=== PATIENT | female | born 1950 | race Caucasian/White ===

== ENCOUNTER → 2016-10-29 | Outpatient (CLI) | payer MEDICARE | END | disposition home or self-care (01) | LOC: CFH 07:55 | PROVIDERS: ATTEND Family Medicine | DX: Z12.31 Encounter for screening mammogram for malignant neoplasm of breast (principal) | CPT/HCPCS: G0202 ==

== ENCOUNTER 2019-01-13 13:09 | Emergency (ER) | payer MEDICARE ==
[~2019-01-13] VITALS: Ht 162.6 cm; Wt 67.5 kg
[2019-01-13 13:18] VITALS: BP 131/85
[2019-01-13] MEDS ORDERED: DIPH,PERTUSS(ACELL),TET VAC/PF 0.5 ML IM-VACC ONE ×2 (13:35→14:00)
[2019-01-13] MEDS ORDERED: LIDOCAINE-MPF 1%, 5ML ONE (13:35)
--- NOTE | 2019-01-13 13:38 | NUR ---
PA AT BEDSIDE FOR LIDO ADMIN.
--- NOTE | 2019-01-13 13:38 | NUR ---
PT HERE WITH C/O RIGHT THURD FINGER LAC, + AVULSION, BLEEDING CONTROLLED. PT AAO X 4, NAD, ROOM AIR, PA AT BEDSIDE FOR EXAM, CALL LIGHT WITHIN REACH.
--- NOTE | 2019-01-13 13:46 | NUR ---
REPORT GIVEN TO DALTON MILLER. CARE TRANSFERRED.
[2019-01-13] MEDS ORDERED: NEOSPORIN OINT. PKT 1 PACKET ONE (13:50)
[2019-01-13] MEDS ORDERED: LIDOCAINE-MPF 1%, 5ML INFIL ONE (14:00)
--- NOTE | 2019-01-13 14:05 | NUR ---
MEDICATED PER EMR (TDAP UPDATED PATIENT UNSURE OF LAST TIME IMMUNIZED FOR TETANUS) EMT AT BEDSIDE-WOUND IRRIGATED WITHOUT DIFFICULTY
== END 2019-01-13 14:54 | disposition home or self-care (01) ==
LOC: ED 14:50
DX: S61.212A Laceration without foreign body of right middle finger without damage to nail, initial encounter (principal); W23.0XXA Caught, crushed, jammed, or pinched between moving objects, initial encounter; Y93.89 Activity, other specified; Y92.009 Unspecified place in unspecified non-institutional (private) residence as the place of occurrence of the external cause; Y99.8 Other external cause status
CPT/HCPCS: 12042; 90471; 90715; 99284

== ENCOUNTER 2019-09-13 16:54 | Emergency (ER) | payer MEDICARE ==
[~2019-09-13] VITALS: Ht 162.6 cm; Wt 68.9 kg
[2019-09-13 17:43] LABS: BASOPHILS # (AUTO) 0.04 x10^3/uL (0-0.1); BASOPHILS % (AUTO) 0 % (0-1); EOSINOPHILS # (AUTO) 0.11 x10^3/uL (0-0.4); EOSINOPHILS % (AUTO) 1 % (1-7); LYMPHOCYTES # (AUTO) 2.03 x10^3/uL (1-3.4); LYMPHOCYTES % (AUTO) 24 % (22-44); MD NO; MEAN CORPUSCULAR HEMOGLOBIN 31.7 pg (27.0-34.8); MEAN CORPUSCULAR HGB CONC 32.8 g/dL (32.4-35.8); MEAN CORPUSCULAR VOLUME 96.7 fL (80-100); MEAN PLATELET VOLUME 9.4 fL (7.4-10.4); MONOCYTES # (AUTO) 0.53 x10^3/uL (0.2-0.8); MONOCYTES % (AUTO) 6 % (2-9); NEUTROPHILS # (AUTO) 5.86 x10^3/uL (1.8-6.8); NEUTROPHILS % (AUTO) 68 % (42-75); PLATELET COUNT 235 x10^3/uL (130-400); RED BLOOD COUNT 4.03 x10^6/uL (3.82-5.3); RED CELL DISTRIBUTION WIDTH 14.4 % (9.6-15.2)
[2019-09-13 17:56] LABS: ALANINE AMINOTRANSFERASE 25 U/L (12-78); ALBUMIN 3.5 g/dL (3.4-5.0); ANION GAP 6 mmol/L (5-15); CALCIUM 9.1 mg/dL (8.5-10.1); CHLORIDE 108 mmol/L (98-107); CREATININE 0.94 mg/dL (0.55-1.02)
[2019-09-13 18:00] LABS: ALKALINE PHOSPHATASE 75 U/L (45-117); BILIRUBIN,TOTAL 0.4 mg/dL (0.2-1.0); TOTAL PROTEIN 7.3 g/dL (6.4-8.2); TROPONIN I < 0.015 ng/mL (0.000-0.045)
--- NOTE | 2019-09-13 18:00 | NUR ---
LATE ENTRY DUE TO PATIENT CARE: THIS IS A 68 YO FEMALE COMING IN FORINTERMITTENT STERNAL CHEST PAIN/PRESSURE "FOR A COUPLE WEEKS", DENIES CARDIAC HX. PATIENT STATES "I'VE BEEN PADDLE BOARDING MORE OFTEN TO PAST COUPLE WEEKS, SO I GUESS I COULD HAVE PULLED SOMETHING". ALL VSS, MONITORING IN PLACE, NSR ON WEB INTERFACE DEVELOPER. CALL LIGHT IN REACH, DENIES NEEDS AT THIS TIME
[2019-09-13 18:07] VITALS: BP 134/84
[2019-09-13 18:26] LABS: FREE T4 (FREE THYROXINE) 1.23 ng/dL (0.76-1.46)
--- NOTE | 2019-09-13 18:44 | NUR ---
Patient given discharge instructions and they have confirmed that they understand the instructions. Patient ambulatory with steady gait.
== END 2019-09-13 18:58 ==
LOC: ED 18:52
DX: R07.89 Other chest pain (principal); R94.31 Abnormal electrocardiogram [ECG] [EKG]
CPT/HCPCS: 36415; 71045; 80053; 84439; 84443; 84481; 84484; 85025; 93005; 99285

== ENCOUNTER → 2019-11-07 | Outpatient (CLI) | payer MEDICARE | END | disposition home or self-care (01) | LOC: CVU 07:28 | PROVIDERS: ATTEND Internal Medicine Cardiovascular Disease | DX: I35.8 Other nonrheumatic aortic valve disorders (principal); R07.89 Other chest pain | CPT/HCPCS: 78452; 93017; 93306; 93356; A9502 ==